=== PATIENT | male | born 1990 | race African-American/Black ===

== ENCOUNTER 2018-07-03 17:33 | Emergency (ER) | payer MEDICAID ==
[~2018-07-03] VITALS: Ht 190.5 cm; Wt 88.0 kg
[2018-07-03 21:29] VITALS: BP 124/81
== END 2018-07-03 22:19 | disposition home or self-care (01) ==
LOC: ER 17:33
DX: S63.8X2A Sprain of other part of left wrist and hand, initial encounter (principal); S93.691A Other sprain of right foot, initial encounter; V49.49XA Driver injured in collision with other motor vehicles in traffic accident, initial encounter; Y93.89 Activity, other specified; Y92.89 Other specified places as the place of occurrence of the external cause; Y99.8 Other external cause status; Z98.890 Other specified postprocedural states
CPT/HCPCS: 29125; 73130; 73630; 99283